=== PATIENT | male | born 1935 | race Caucasian/White ===

== ENCOUNTER → 2020-12-17 11:01 | Outpatient (BNVA) | payer MEDICARE, MEDICAID, SELFPAY | PROVIDERS: Family Provider Internal Medicine; Visit Provider Family Medicine | DX: I10 Essential (primary) hypertension (principal); E11.9 Type 2 diabetes mellitus without complications; Z79.4 Long term (current) use of insulin | CPT/HCPCS: 80053; 80061; 83036; 83721; 84443; 85025 ==

== ENCOUNTER 2021-02-18 20:39 | Inpatient (IN) | payer MEDICARE, MEDICAID, SELFPAY ==
[2021-02-18 20:42] VITALS: BP 137/71; PULSE 87; RESP 18; TEMP 36.6; O2SAT 98; BMI 28.2
[2021-02-18 20:57] VITALS: PULSE 78
--- NOTE | 2021-02-18 20:57 | XRR_ITS ---
PROCEDURE INFORMATION: Exam: XR Chest Exam date and time: 02/18/2021 9:20 PM Age: 85 years old Clinical indication: Other: Weakness/stroke like symptoms; Prior surgery; Surgery date: 6+ months; Surgery type: Pacemaker, heart valve; Patient HX: C/O weakness TECHNIQUE: Imaging protocol: XR of the chest. Views: 1 view. Total images: 1 COMPARISON: No relevant prior studies available. FINDINGS: Tubes, catheters and devices: Pacemaker. Lungs: No visible active interstitial or alveolar airspace disease. Pleural spaces: Unremarkable. No pleural effusion. No pneumothorax. Heart/Mediastinum: Cardiac structures and configuration with arteriosclerosis. Status post sternotomy chest and CABG. Mitral valve prosthesis. Bones/joints: Unremarkable for age. Other findings: Epidural TENS unit XR/XR chest 1V portable [id number] IMPRESSION: Nonacute.
--- NOTE | 2021-02-18 20:57 | CTR_ITS ---
PROCEDURE INFORMATION: Exam: CT Head Without Contrast Exam date and time: 02/18/2021 9:06 PM Age: 85 years old Clinical indication: Weakness, extremity; Patient HX: Left arm weakness. TECHNIQUE: Imaging protocol: Computed tomography of the head without contrast. Total images: 207 Radiation optimization: All CT scans at this facility use at least one of these dose optimization techniques: automated exposure control; mA and/or kV adjustment per patient size (includes targeted exams where dose is matched to clinical indication); or iterative reconstruction. COMPARISON: No relevant prior studies available. RADIATION DOSE METRICS: Total DLP (mGy-cm): 882.96 FINDINGS: Brain: Subtle hypoattenuation surrounding an antecedent appearing lacunar infarction right frontal parietal subcortical watershed junction that could reflect a recent ischemic event/infarction extension. No mass effect. No associated hemorrhagic component. No unilateral hyperdense MCA or insular ribbon sign. No generalized mass effect. No midline shift. Mild small vessel ischemic disease with senile periventricular leukomalacia. Cerebral and cerebral atrophy with ventricular dilatation not inconsistent with the patient's chronological age. Cerebral ventricles: No ventriculomegaly. Bones/joints: Unremarkable. No acute fracture. Paranasal sinuses: Visualized sinuses are unremarkable. No fluid levels. Mastoid air cells: Visualized mastoid air cells are well aerated. Soft tissues: Unremarkable. CT/CT head wo con* [id number] IMPRESSION: 1. Findings of a suspected recent right frontal parietal watershed junction ischemic event/infarction. 2. Would suggest follow-up MRI of the brain for confirmation. 3. No visible intracranial hemorrhagic event. Radiation Dose CTDIVOL = (mGy): DLP = 882.96 (mGy-cm)
[2021-02-18 22:01] LABS: Basophils # 0.1 10^3/uL (0.0-0.1); Basophils % 0.5 %; Eosinophils # 0.1 10^3/uL (0.0-0.8); Hematocrit 43.6 % (42.0-52.0); Hemoglobin 15.2 g/dL (11.7-16.6); Lymphocytes # 1.2 10^3/uL (0.8-4.8); Lymphocytes % 10.3 %; Mean Corpuscular HGB Conc 34.9 g/dL (30.0-36.0); Mean Corpuscular Hemoglobin 33.1 pg (28.0-34.0); Mean Platelet Volume 10.9 fL (7.4-10.4); Monocytes # 0.7 10^3/uL (0.2-0.9); Monocytes % 6.3 %; Neutrophils # 9.13 10^3/uL (1.8-7.7); Neutrophils % 81.5 %; Nucleated Red Blood Cells % 0 %; Platelet Count 238 10^3/cmm (130-400); Red Blood Count 4.59 10^6/uL (4.1-5.3); Red Cell Distribution Width 13.1 % (12.1-15.1); White Blood Count 11.2 10^3/uL (4.0-10.0)
--- NOTE | 2021-02-18 22:38 | ED_ITS ---
HPI - Neuro Symptoms/Deficit General: Chief Complaint: Neuro Symptoms/Deficit Stated Complaint: Stroke like symptoms Time Seen by Provider: 02/18/21 20:44 Source: patient, family () and EMS Mode of arrival: EMS Limitations: no limitations History of Present Illness: HPI Narrative: This is an 85-year-old gentleman with a history of diabetes mellitus, hypertension, who presented to the emergency department with concerns for a stroke. The patient is a poor historian and it is difficult to get an accurate timeline of events. His family states that they noticed he was leaning to the left when he was walking and hitting the wall because he was leaning to the left. The patient states that he noticed that he was leaning to the left last week also and so that this is not new. The patient's family also thought that he may have had a left facial droop and left upper extremity weakness. Those symptoms have resolved prior to arrival in the emergency department. The patient denies any dizziness, headache, focal weakness. I was unable to determine a last known well on the patient. The patient states that earlier today his blood glucose level was greater than 500 and he took a lot of insulin for these. His blood sugar subsequently dropped to about 97 which he said is extremely low for him. He states that his normal blood glucose levels around 250. He fell because his blood glucose had dropped to the low this may have been contributing to his symptoms. Location: left face and left arm History of same: No Severity: mild Quality: weak Relieving factors: time Exacerbating factors: none Context: gradual onset On Anticoagulants: No Associated symptoms: Deny chest pain, cough, diaphoresis, fevers/chills, headache(s), anorexia, malaise, nausea, seizures, short of breath, syncope, tingling, vertigo, vomiting or weakness Treatments Prior to Arrival: none Review of Systems General: Reports: 10 or more systems reviewed and unremarkable except in HPI and below Const: Denies: malaise or diaphoresis Card: Denies: chest pain or syncope GI: Denies: nausea or vomiting Neuro: Denies: headache(s) or vertigo [facility] ED PFSH: Medical History Chronic back pain DM (diabetes mellitus) Hypertension Surgical History 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 Family History Mother Stroke Father Diabetes CAD (coronary artery disease) Son Cancer Social History Smoking and tobacco status: former smoker Alcohol intake: former Marital status: Number of children: 3 Current occupational status: retired NIH stroke score NIHSS: Level Of Consciousness - 1a: 0 Level Of Consciousness Questions - 1b: Both Correct Level Of Consciousness Commands - 1c: Both Correct Best Gaze - 2: Normal Visual Simpson - 3: No Visual Loss Facial Palsy - 4: Normal Motor Arm Right - 5: No Drift Motor Arm Left - 5: No Drift Motor Leg Right - 6: No Drift Motor Leg Left - 6: No Drift Limb Ataxia - 7: Absent Sensory - 8: Normal Best Language - 9: No Aphasia Dysarthia - 10: Normal Extinction And Inattention - 11: 0 Score: Total Score: 0 Physical Exam Const: COMMON NORMALS: no acute distress, average body habitus, patient oriented x3, no limitations, healthy appearing, alert and well nourished HENMT: COMMON NORMALS: normocephalic, atraumatic and moist oral mucous membranes HEAD & SCALP: normocephalic and atraumatic Neck/C-Spine: COMMON NORMALS: no meningeal signs and no JVD Resp: COMMON NORMALS: normal respiratory effort, No retractions, No use of accessory muscles, clear to auscultation bilaterally and percussion normal AUSCULTATION: clear to auscultation bilaterally PERCUSSION: percussion normal Cardio: COMMON NORMALS: no JVD, regular rate, regular rhythm, S1 normal heart sound present, S2 normal heart sound present, No gallops present (Cardio), No clicks present (Cardio), No murmurs present (Cardio), No rub (Cardio) and Peripheral pulses 2+ throughout RATE: regular rate RHYTHM: regular rhythm HEART SOUNDS: S1 normal heart sound present and S2 normal heart sound present PERIPHERAL PULSES: Peripheral pulses 2+ throughout GI: COMMON NORMALS: Normal to inspection, nondistended, normoactive bowel sounds present, Soft to palpation, non-tender, No hepatosplenomegaly present, no masses and no bruits PALPATION: Yes Soft to palpation and Yes No hepatosplenomegaly present Extremity: COMMON NORMALS: normal to inspection, full ROM, capillary refill normal, no calf tenderness and no pedal edema Neuro: COMMON NORMALS: patient oriented x3 SENSORIUM/ORIENTATION: Yes alert MENINGEAL SIGNS: Yes no meningeal signs Skin: COMMON NORMALS: no rashes or lesions noted, no wounds, turgor normal, no jaundice, no petechiae and no mottling GENERAL SKIN EXAM: no rashes or lesions noted and turgor normal Course Consultations: Consultation #1: Discussed the patient with Dr. Gudino, hospitalist and he kindly accepted the patient to his service. Time: 22:11 Vital Signs: Vital signs: Vital Signs Temperature 98 F 02/18/21 23:07 Pulse Rate 75 02/18/21 23:07 Respiratory Rate 16 02/18/21 23:07 Blood Pressure 121/64 02/18/21 23:07 Pulse Oximetry 98 02/18/21 20:42 MDM - Neuro Symptoms/Deficit MDM Narrative: Medical decision making narrative: 85-year-old male who was brought into the emergency department with concerns for stroke symptoms. NIHSS was 0, however head CT scan shows a subacute CVA. He is admitted to the hospitalist service for further evaluation, stroke work-up and management. Medical Records: Attestation: I reviewed the patient's medical records. Lab Data: Attestation: I reviewed the patient's lab results. Labs: Lab Results 02/18/21 02/18/21 02/18/21 Range/Units 21:55 21:55 21:55 WBC 11.2 H (4.0-10.0) 10^3/ uL RBC 4.59 (4.1-5.3) 10^6/u L Hgb 15.2 (11.7-16.6) g/dL Hct 43.6 (42.0-52.0) % MCV 95.0 H (80-94) fL MCH 33.1 (28.0-34.0) pg MCHC 34.9 (30.0-36.0) g/dL RDW 13.1 (12.1-15.1) % Plt Count 238 (130-400) 10^3/c mm MPV 10.9 H (7.4-10.4) fL Neut % (Auto) 81.5 % Lymph % (Auto) 10.3 % Troup % (Auto) 6.3 % Eos % (Auto) 1.0 % Baso % (Auto) 0.5 % Neut # (Auto) 9.13 H (1.8-7.7) 10^3/u L Lymph # (Auto) 1.2 (0.8-4.8) 10^3/u L Troup # (Auto) 0.7 (0.2-0.9) 10^3/u L Eos # (Auto) 0.1 (0.0-0.8) 10^3/u L Baso # (Auto) 0.1 (0.0-0.1) 10^3/u L Nucleated RBC % (a uto) 0 % Nucleated RBCs # 0.0 /100WBC PT Cancelled INR Cancelled APTT Cancelled Sodium Cancelled Potassium Cancelled Chloride Cancelled Carbon Dioxide Cancelled Anion Gap Cancelled BUN Cancelled Creatinine Cancelled GFR Calculation Cancelled Glucose Cancelled Calculated Osmolal ity Cancelled Calcium Cancelled Total Bilirubin Cancelled AST Cancelled ALT Cancelled Alkaline Phosphata se Cancelled Total Protein Cancelled Albumin Cancelled Globulin Cancelled Imaging Data^: CXR: Attestation: I personally reviewed and interpreted this imaging study as follows: Radiologist's impression: [address] [id number] ReportSigned Patient: Alexia Carbajal #: [id number]: 5Acct#:[id number]/Sex: 85 / MADM Date: 02/18/21Loc: ERRoom/Bed:Attending Dr: Ordering Provider/Ordering MD: Baljinder Escobar MD, [facility] [place] of Service: 02/18/21 Procedure(s): XR chest 1V portable [id number] Accession Number(s): [id number] Report Number: [id number] PROCEDURE INFORMATION: Exam: XR Chest Exam date and time: 02/18/2021 9:20 PM Age: 85 years old Clinical indication: Other: Weakness/stroke like symptoms; Prior surgery; Surgery date: 6+ months; Surgery type: Pacemaker, heart valve; Patient HX: C/O weakness TECHNIQUE: Imaging protocol: XR of the chest. Views: 1 view. Total images: 1 COMPARISON: No relevant prior studies available. FINDINGS: Tubes, catheters and devices: Pacemaker. Lungs: No visible active interstitial or alveolar airspace disease. Pleural spaces: Unremarkable. No pleural effusion. No pneumothorax. Heart/Mediastinum: Cardiac structures and configuration with arteriosclerosis. Status post sternotomy chest and CABG. Mitral valve prosthesis. Bones/joints: Unremarkable for age. Other findings: Epidural TENS unit XR/XR chest 1V portable [id number] IMPRESSION: Nonacute. Dictated By:Leena More By:Leena More Date/Time:02/18/212158DD/ 56 CT Head: Attestation: I personally reviewed and interpreted this imaging study as follows: Radiologist's impression: [address] [id number] Scan ReportSigned with Addenda Patient: Alexia Carbajal #: [id number]: 5Acct#:[id number]/Sex: 85 / MADM Date: 02/18/21Loc: ERRoom/Bed:Attending Dr: Ordering Provider/Ordering MD: Baljinder Escobar MD, [facility] [place] Date of Service: 02/18/21 Procedure(s): CT head wo con* [id number] Accession Number(s): [id number] Report Number: [id number]/CT head wo con* [id number] THIS REPORT CONTAINS FINDINGS THAT MAY BE CRITICAL TO PATIENT CARE. The findings were verbally communicated via telephone conference with Dr. Escobar at 9:56 PM CDT on 02/18/2021. The findings were acknowledged and understood. Radiation Dose CTDIVOL = (mGy): DLP = 882.96 (mGy-cm) Addendum Dictated By: Neal Moreendum Signed By: Leena More Date/Time:02/18/211Addendum Cosigned By: PROCEDURE INFORMATION: Exam: CT Head Without Contrast Exam date and time: 02/18/2021 9:06 PM Age: 85 years old Clinical indication: Weakness, extremity; Patient HX: Left arm weakness. TECHNIQUE: Imaging protocol: Computed tomography of the head without contrast. Total images: 207 Radiation optimization: All CT scans at this facility use at least one of these dose optimization techniques: automated exposure control; mA and/or kV adjustment per patient size (includes targeted exams where dose is matched to clinical indication); or iterative reconstruction. COMPARISON: No relevant prior studies available. RADIATION DOSE METRICS: Total DLP (mGy-cm): 882.96 FINDINGS: Brain: Subtle hypoattenuation surrounding an antecedent appearing lacunar infarction right frontal parietal subcortical watershed junction that could reflect a recent ischemic event/infarction extension. No mass effect. No associated hemorrhagic component. No unilateral hyperdense MCA or insular ribbon sign. No generalized mass effect. No midline shift. Mild small vessel ischemic disease with senile periventricular leukomalacia. Cerebral and cerebral atrophy with ventricular dilatation not inconsistent with the patient's chronological age. Cerebral ventricles: No ventriculomegaly. Bones/joints: Unremarkable. No acute fracture. Paranasal sinuses: Visualized sinuses are unremarkable. No fluid levels. Mastoid air cells: Visualized mastoid air cells are well aerated. Soft tissues: Unremarkable. CT/CT head wo con* [id number] IMPRESSION: 1. Findings of a suspected recent right frontal parietal watershed junction ischemic event/infarction. 2. Would suggest follow-up MRI of the brain for confirmation. 3. No visible intracranial hemorrhagic event. Radiation Dose CTDIVOL = (mGy): DLP = 882.96 (mGy-cm) Dictated By:Leena More By:Leena More Date/Time:02/18/212157DD/ 55 Discharge Plan Discharge Patient Disposition: Admitted As Inpatient Admit Provider: Adina Gudino Clinical Impression: Cerebrovascular accident Qualifiers: CVA mechanism: unspecified Qualified Code(s): I63.9 - Cerebral infarction, unspecified Condition: Stable Coding Level of Care Code ED Correspondence School Teacher for [facility] Fwd Exam Comprehensive
--- NOTE | 2021-02-18 22:38 | PC.NURSE ---
report to Maryellen BARRAGAN , at [facility]
[2021-02-18 23:07] VITALS: BP 121/64; PULSE 75; RESP 16; TEMP 36.6
--- NOTE | 2021-02-18 23:21 | PM.HP ---
Providers/Chief Complaint Admitting Physician: Adina Gudino MD Chief Complaint: Stroke like symptoms History of Present Illness Nick Carbajal is a 85 year old male with pmh of IDDM, HTN, HLD, previous tobacco use presented to ER with complaints of left upper extremity weakness since about 530 PM today. reports that he had possible word finding difficulties, and facial droop. his FSBS was elevated also state, later fluctuated at home He is not on ASA or blood thinners. states he has history of heart valve replacement not able to recall which one. The patient had an abnormal CT head in the ER and is being admitted for suspected CVA CT head CT/CT head wo con* [id number] IMPRESSION: 1. Findings of a suspected recent right frontal parietal watershed junction ischemic event/infarction. 2. Would suggest follow-up MRI of the brain for confirmation. 3. No visible intracranial hemorrhagic event. Review of Systems General: Reports: 10 or more systems reviewed and unremarkable except in HPI and below Const: Denies: fever(s) or chills Eyes: Denies: change in vision ENMT: Denies: throat pain Card: Denies: chest pain or palpitations Resp: Denies: dyspnea or productive cough GI: Denies: abdominal pain or nausea : Denies: flank pain or difficulty urinating Musc: Denies: extremity swelling or joint pain Skin/Breast: Denies: rash Neuro: Reports: weakness in extremities; Denies: headache(s) or Slurred speech present Psych: Denies: anxiety or depression Medications/Allergies Home Medications Medication Instructions Recorded Confirmed Last Taken Type insulin glargine 100 unit/mL (3 40 unit SUBCUT DAILY #15 ml 12/17/20 12/27/20 Unknown Rx mL) subcutaneous pen losartan 50 mg tablet 50 mg PO DAILY #30 tab 12/17/20 12/27/20 Unknown Rx finasteride 5 mg tablet 5 mg PO DAILY #30 tab 12/21/20 12/27/20 Unknown Rx insulin lispro 100 unit/mL 10 unit SUBCUT TID #3 ml 12/21/20 12/27/20 Unknown Rx subcutaneous pen metformin 1,000 mg tablet 1,000 mg PO BID #60 tab 12/21/20 12/27/20 Unknown Rx tamsulosin 0.4 mg capsule 0.4 mg PO DAILY #30 cap 12/21/20 12/27/20 Unknown Rx rosuvastatin 5 mg tablet 5 mg PO DAILY 90 Days #90 tab 12/24/20 12/27/20 Unknown Rx allopurinol 300 mg tablet 300 mg PO DAILY 12/27/20 12/27/20 Unknown History cholecalciferol (vitamin D3) 50 50 mcg PO DAILY 12/27/20 12/27/20 Unknown History mcg (2,000 unit) capsule glucosamine 500 cap PO 12/27/20 12/27/20 Unknown History lp-tykhardsq-guugtwmw comp 400 mg-D3 667 unit-C-Mn cap krill oil PO 12/27/20 12/27/20 Unknown History multivitamin 1 tab PO DAILY 12/27/20 12/27/20 Unknown History pantoprazole 40 mg tablet,delayed 40 mg PO DAILY 12/27/20 12/27/20 Unknown History release vit C 250 mg-vit E 90 mg-zinc 40 1 tab PO BID 12/27/20 12/27/20 Unknown History mg-copper 1 py-znervt-ypnhpo capsule blood sugar diagnostic #100 ea 02/18/21 Unknown Rx Allergies Allergy/AdvReac Type Severity Reaction Status Date / Time No Known Allergies Allergy Verified 12/17/20 09:55 PFSH Acute PFSH: Medical History (Reviewed 02/18/21 @ 22:50 by Baljinder Escobar MD, [facility] [place] Chronic back pain DM (diabetes mellitus) Hypertension Surgical History (Reviewed 02/18/21 @ 22:50 by Baljinder Escobar MD, [facility] [place] 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 Family History (Reviewed 02/18/21 @ 22:50 by Baljinder Escobar MD, [facility] [facility] [place] Mother Stroke Father Diabetes CAD (coronary artery disease) Son Cancer Social History (Reviewed 02/18/21 @ 22:50 by Baljinder Escobar MD, [facility] [place] Smoking and tobacco status: former smoker Alcohol intake: former Marital status: Number of children: 3 Current occupational status: retired Vitals/I&O/Wt Last Vital Signs Temp 98 F 02/18/21 23:07 Pulse 75 02/18/21 23:07 Resp 16 02/18/21 23:07 BP 121/64 02/18/21 23:07 Pulse Ox 98 02/18/21 20:42 Weight last 48 hrs Weight 220 lb Physical Exam Const: COMMON NORMALS: no acute distress and no limitations Eye: COMMON NORMALS: Equal, round and reactive pupils present Resp: COMMON NORMALS: normal respiratory effort and No retractions Cardio: COMMON NORMALS: regular rate and regular rhythm HEART SOUNDS: Murmur heart sound present GI: COMMON NORMALS: Normal to inspection, nondistended, normoactive bowel sounds present and Soft to palpation Extremity: COMMON NORMALS: normal to inspection and full ROM Neuro: ZEN COMA SCALE: document GCS findings COMMON NORMALS: patient oriented x3, CN's II-XII intact bilaterally, moves all extremities, no focal motor deficits and no sensory deficits noted Data : 02/18/21 21:55 02/18/21 21:55 A&P Assessment and plan (1) Cerebrovascular accident: admit to med surg neuro check check FLP, AIC PT/OT ECHO, carotid US, MRI/MRA brain asa,statin Status: Acute Qualifiers: CVA mechanism: unspecified Qualified Code(s): I63.9 - Cerebral infarction, unspecified (2) Hypertension: add PRN hydralyzine Status: Acute Qualifiers: Hypertension type: essential hypertension Qualified Code(s): I10 - Essential (primary) hypertension (3) DM (diabetes mellitus): check aic fsbs, ssi resume home insulin regimen Status: Acute Qualifiers: Diabetes mellitus complication status: without complication Diabetes mellitus retirement insulin use: with manager intermediate use Diabetes mellitus type: type 2 Qualified Code(s): E11.9 - Type 2 diabetes mellitus without complications; Z79.4 - FCI (current) use of insulin Attestations Medical Necessity Statement*: Nick Solomon's hospital stay will require greater than 2 midnights for cva Coding Level of Care Code Acute Md Urologist for [facility] Fwd Exam Detailed Diagnoses Cerebrovascular accident I63.9 CVA mechanism: unspecified Hypertension I10 Hypertension type: essential hypertension DM (diabetes mellitus) E11.9; Z79.4 Diabetes mellitus complication status: without complication Diabetes mellitus retirement insulin use: with retirement use Diabetes mellitus type: type 2
[2021-02-18 23:35] VITALS: BP 133/66; PULSE 85; RESP 18; TEMP 36.6; O2SAT 96
[2021-02-18 23:43] LABS: INR 0.99 (0.8-1.2); Partial Thromboplastin Time 26.6 SECONDS (23.9-36.7)
[2021-02-18 23:48] VITALS: BP 133/66; PULSE 85; RESP 18; TEMP 36.6; O2SAT 96
[2021-02-18 23:50] LABS: Alanine Aminotransferase 12 U/L (0-41); Alkaline Phosphatase 78 IU/L (40-130); Anion Gap 18.3 (5-19); Aspartate Amino Transferase 14 U/L (0-40); Blood Urea Nitrogen 23 mg/dL (8-23); Calcium 8.7 mg/dL (8.5-10.5); Carbon Dioxide 23 mmol/L (22-29); Chloride 97 mmol/L (98-107); Globulin 2.3 g/dL (1.3-4.6); Glucose 316 mg/dL (65-115); Osmolality Calculated 294 mOsm/kg (285-295); Potassium 4.3 mmol/L (3.5-5.1); Sodium 134 mmol/L (136-145); Total Bilirubin 0.7 mg/dL (0.15-1.2); Total Protein 6.3 g/dL (6.6-8.7)
[2021-02-19] VITALS (9 sets, daily range): BP systolic 116–160; BP diastolic 60–78; PULSE 71–95; RESP 17–19; TEMP 36.5–37; O2SAT 94–97
[2021-02-19 00:06] LABS: Glucose Point of Care 322 mg/dL (70-110)
[2021-02-19 00:45] LABS: Add Urine Microscopic? YES; Bilirubin Urine Neg (Negative); Blood Urine Neg (Negative); Glucose Urine UA 4+ (Normal); Ketones Urine Negative (Negative); Leukocyte Esterase Urine Trace (Negative); Nitrate Urine Positive (Negative); Protein Urine Neg (Negative); Urine Color Yellow (Yellow); Urobilinogen Urine Norm (Negative); pH Urine 6 (5-7)
[2021-02-19] MEDS: atorvastatin 40 mg Tablet 20 MG PO ×2 (00:46→21:00)
[2021-02-19 00:51] LABS: Add Urine Culture? Yes; Amorphous Sediment Urine 2+ /hpf; Bacteria Urine 2+ /hpf; RBC Urine 0-4 /hpf (0-2); Squamous Epithelial Cell Urine 0-4 /hpf (0-5); WBC Urine 25-40 /hpf (0-5)
[2021-02-19 00:54] LABS: Amphetamines Screen Urine Negative (Negative); Barbiturates Screen Urine Negative (Negative); Benzodiazepines Screen Urine Negative (Negative); Cocaine Screen Urine Negative (Negative); Opiate Screen Urine Negative (Negative); PCP Screen Urine Negative (Negative); THC Screen Urine Negative (Negative)
[2021-02-19 04:00] LABS: Chol HDL Ratio 6.23 mg/dL (1.0-5.00); Cholesterol 193 mg/dL (0-200); HDL Cholesterol 31 mg/dL (60-100); Thyroid Stimulating Hormone 1.24 uIU/mL (0.27-4.20); Triglycerides 548 mg/dL (0-150)
[2021-02-19 04:04] LABS: Estmated Average Glucose 194; Hemoglobin A1C 8.4 % (4.0-6.0)
[2021-02-19 04:35] LABS: LDL Cholesterol Direct 97 mg/dL (0-100)
--- NOTE | 2021-02-19 06:00 | USCV_ITS ---
Nick Carbajal Age: 85 Gender: M : 1935 Exam Date: 02/19/2021 08:01 Ordering Phys: Adina Gudino MD Technologist: Theresa Monk [place] [facility] [place]: CVA BP: 125 / 65 HR: 80 Rhythm: Sinus Technical Quality: Fair MEASUREMENTS (Male / Female) Normal Values 2D ECHO LV Diastolic Diameter PLAX 3.6 cm 4.2 - 5.9 / 3.9 - 5.3 cm LV Systolic Diameter PLAX 2.7 cm LV Chamber Size 4.2 cm IVS Diastolic Thickness 1.5 cm 0.6 - 1.0 / 0.6 - 0.9 cm IVS Systolic Thickness 1.8 cm LVPW Diastolic Thickness 1.3 cm 0.6 - 1.0 / 0.6 - 0.9 cm LVPW Systolic Thickness 1.4 cm RV Chamber Size 3.3 cm LVOT Diameter 1.7 cm LV Ejection Fraction 2D Teich 51.7 % LV Ejection Fraction MOD 2C 66.7 % LV Ejection Fraction 2C AL 70.5 % LA Diameter 4.1 cm LA Width 3.3 cm LA Height 5.4 cm RA Width 3.2 cm RA Height 5.2 cm Aorta at Sinotubular Diameter 2.3 cm M-MODE LV Diastolic Diameter MM 5.5 cm 4.2 - 5.9 / 3.9 - 5.3 cm LV Systolic Diameter MM 3.3 cm LV Ejection Fraction MM Teich 68.5 % IVS Diastolic Thickness MM 1.0 cm 0.6 - 1.0 / 0.6 - 0.9 cm IVS Systolic Thickness MM 1.5 cm LVPW Diastolic Thickness MM 1.9 cm 0.6 - 1.0 / 0.6 - 0.9 cm LVPW Systolic Thickness MM 1.8 cm Aortic Annulus Diameter 4.0 cm LA Ao Ratio MM 1.2 DOPPLER AV Peak Velocity 148.0 cm/s LVOT Peak Velocity 117.0 cm/s AV Area Cont Eq vti 2.4 cm squared AV Area Cont Eq pk 1.8 cm squared MV Peak Velocity 174.0 cm/s MV Area PHT 2.8 cm squared Mitral E to A Ratio 0.6 MV E' Velocity 110.0 cm/s TR Peak Velocity 263.6 cm/s TR Peak Gradient 27.8 mmHg TR Mean Velocity 232.4 cm/s TR Mean Gradient 22.3 mmHg TR Velocity Time Integral 76.5 cm TV Peak E Velocity 62.0 cm/s Right Atrial Pressure 3.0 mmHg Pulmonary Artery Systolic Pressu 30.8 mmHg PV Peak Velocity 71.0 cm/s RV Acceleration Time 0.1 s RV Ejection Time 0.2 s RV AcT/ET 0.3 FINDINGS Left Ventricle Normal left ventricular size and systolic function, EF 70 %. No regional wall motion abnormalities. Mild left ventricular hypertrophy. Grade I/IV diastolic dysfunction (abnormal relaxation filling pattern), normal to mildly elevated filling pressures. Right Ventricle The right ventricle is normal in size and function. Right Atrium The right atrium is normal in size. Left Atrium The left atrium is normal in size. Mitral Valve Moderate mitral annular calcification. Aortic Valve Thickened aortic valve. Tricuspid Valve Trace tricuspid valve regurgitation. Pulmonic Valve Pulmonic valve not well visualized. Pericardium Normal pericardium without effusion. Aorta Normal ascending aorta dimension. CONCLUSIONS Normal left ventricular size and systolic function, EF 70 %. No regional wall motion abnormalities. Mild left ventricular hypertrophy. Grade I/IV diastolic dysfunction (abnormal relaxation filling pattern), normal to mildly elevated filling pressures. Moderate mitral annular calcification. Thickened aortic valve. Trace tricuspid valve regurgitation. There are no intracardiac masses. There are no prior echocardiogram studies to compare. Dr Tammy Callahan MD FAC (Electronically Signed) Final Date: 19 Feb 2021 10:02 S
--- NOTE | 2021-02-19 06:00 | USR_ITS ---
Arterial ultrasound of the extracerebral carotid and vertebral arteries Clinical indication: Weakness, extremity; Left; Additional info: CVA Technique: Real-time ultrasound with davis scale, duplex Doppler, and color flow imaging was performed to evaluate the extracerebral carotid and vertebral arteries. No prior vascular imaging studies are available for correlation at the time of dictation. Findings: Asymmetric plaque formation is identified in the visualized carotid arteries, left greater than right. There is normal antegrade flow within the vertebral arteries bilaterally. The peak systolic velocity measurements within the right and left internal carotid arteries are 74 and 143 cm per second respectively. The right systolic velocity ratio is 1.12, while the left systolic velocity ratio is 1.80. When correlating with NASCET index criteria, the mildly elevated velocity measurement in the left internal carotid artery would be indicative of low-grade stenosis on the order of 50-69%. US/CV carotid duplex BI* [id number] Impression: 1. Asymmetric plaque formation within the carotid arteries, with low-grade left ICA stenosis, on the order of 50-69%. 2. Normal antegradew flow within the vertebral arteries.
[2021-02-19 06:30] LABS: Glucose Point of Care 312 mg/dL (70-110)
[2021-02-19] MEDS: finasteride 5 mg Tablet PO (08:40)
[2021-02-19] MEDS: tamsulosin 0.4 mg Capsule PO ×2 (08:40→17:29)
[2021-02-19] MEDS: aspirin 325 mg Tablet PO (08:40)
--- NOTE | 2021-02-19 10:00 | PM.PN ---
Subjective Subjective: Interval history: Overall he is doing all right, denies any new developments. Denies headache, dizziness, vision changes. Denies new numbness or weakness. Denies shortness of breath or chest pain. Has a bioprosthetic heart valve. Pacemaker. Occasionally sees a tug boat engineer. Vitals/I&O/Wt Last Vital Signs Temp 97.7 F 02/19/21 08:00 Pulse 71 02/19/21 08:00 Resp 17 02/19/21 08:00 BP 153/78 02/19/21 08:00 Pulse Ox 97 02/19/21 08:00 02/18/21 02/19/21 02/19/21 22:59 06:59 14:59 Intake Total 360 / 360 Output Total 725 / 725 475 / 475 Balance -725 / -725 -115 / -115 Weight last 48 hrs Weight 99.79 kg Physical Exam Const: COMMON NORMALS: no acute distress, patient oriented x3 and alert HENMT: COMMON NORMALS: oropharynx normal Neck/C-Spine: COMMON NORMALS: no meningeal signs and no JVD Resp: COMMON NORMALS: normal respiratory effort and clear to auscultation bilaterally AUSCULTATION: clear to auscultation bilaterally Cardio: COMMON NORMALS: no JVD, regular rhythm, S1 normal heart sound present, S2 normal heart sound present and No murmurs present (Cardio) RHYTHM: regular rhythm HEART SOUNDS: S1 normal heart sound present and S2 normal heart sound present GI: COMMON NORMALS: Normal to inspection, nondistended, normoactive bowel sounds present, Soft to palpation and non-tender PALPATION: Yes Soft to palpation Extremity: COMMON NORMALS: no joint enlargement and no pedal edema Neuro: COMMON NORMALS: patient oriented x3 and moves all extremities SENSORIUM/ORIENTATION: Yes alert MENINGEAL SIGNS: Yes no meningeal signs COORDINATION/BALANCE: [id number]-[id number] test normal and tapk-on-hwno test normal SPEECH: speech normal SENSORY EXAM: Yes Normal double simultaneous stimulation for sensation MOTOR EXAM: 5/5 motor strength present throughout, Pronator motor function not present and Normal motor muscle tone present throughout COORDINATION: fmmyds-ef-aajo test normal and ramd-xq-ouum test normal OTHER: No trouble tracking. Visual patricio full to confrontation. Skin: COMMON NORMALS: no rashes or lesions noted GENERAL SKIN EXAM: no rashes or lesions noted Data : 02/18/21 21:55 02/18/21 23:26 A&P Assessment and plan (1) Cerebrovascular accident: Symptoms appear to resolve. Possible CVA on CT head. Checking with MRI study is not able to be obtained over the weekend. Scheduled for Sunday morning. Carotid Doppler with low-grade left ICA stenosis, 50-69%. He has bioprosthetic heart valve. Pacemaker. He is not aware of history of atrial fibrillation. Continue aspirin, statin. Monitor on telemetry. Follow-up TTE. PT/OT/ST assessment. Status: Acute Qualifiers: CVA mechanism: unspecified Qualified Code(s): I63.9 - Cerebral infarction, unspecified (2) Hypertension: Monitor BP. Resume losartan. Flomax. PRN hydralyzine Status: Acute Qualifiers: Hypertension type: essential hypertension Qualified Code(s): I10 - Essential (primary) hypertension (3) DM (diabetes mellitus): A1c 8.4, could benefit from optimization of diabetes control. resume home insulin regimen Status: Acute Qualifiers: Diabetes mellitus complication status: without complication Diabetes mellitus middle or intermediate school principal insulin use: with retirement use Diabetes mellitus type: type 2 Qualified Code(s): E11.9 - Type 2 diabetes mellitus without complications; Z79.4 - terminal gauger (current) use of insulin (4) UTI (urinary tract infection): Follow urine culture. Discussed with him. Start Rocephin. Status: Acute Attestations Medical Necessity Statement*: Continue admission for assessment management following CVA. Coding Level of Care Code Acute Account Manager Relief for [facility] Fwd Exam Comprehensive Diagnoses Cerebrovascular accident I63.9 CVA mechanism: unspecified Hypertension I10 Hypertension type: essential hypertension DM (diabetes mellitus) E11.9; Z79.4 Diabetes mellitus complication status: without complication Diabetes mellitus retirement insulin use: with middle or intermediate school principal use Diabetes mellitus type: type 2 UTI (urinary tract infection) N39.0
[2021-02-19] MEDS: cefTRIAXone 1,000 MG in sodium chloride 0.9% (plus) 50 ML 100 MG IV (11:01)
[2021-02-19 11:04] LABS: Glucose Point of Care 351 mg/dL (70-110)
--- NOTE | 2021-02-19 13:41 | PC.NUTR ---
MD nutrition consult, stroke diagnosis. Provided nutrition education for Stroke Nutrition Therapy, CHO Counting for DM, and High Triglycerides Nutrition Therapy. Recommend to consider consistent carb addition to current diet order given glucose ranging in 300s, however pt age and preferences also noted. MD notified of recommendation.
[2021-02-19 17:06] LABS: Glucose Point of Care 341 mg/dL (70-110)
[2021-02-19 20:04] LABS: Glucose Point of Care 395 mg/dL (70-110)
[2021-02-19] MEDS: trazodone 50 mg Tablet PO (21:00)
[2021-02-20] VITALS (10 sets, daily range): BP systolic 107–158; BP diastolic 58–81; PULSE 62–92; RESP 16–20; TEMP 36.5–37.8; O2SAT 93–97
[2021-02-20 05:33] LABS: Basophils # 0.1 10^3/uL (0.0-0.1); Basophils % 0.7 %; Eosinophils # 0.2 10^3/uL (0.0-0.8); Eosinophils % 2.7 %; Hematocrit 44.2 % (42.0-52.0); Hemoglobin 15.4 g/dL (11.7-16.6); Lymphocytes # 0.9 10^3/uL (0.8-4.8); Mean Corpuscular HGB Conc 34.8 g/dL (30.0-36.0); Mean Corpuscular Hemoglobin 33.5 pg (28.0-34.0); Mean Corpuscular Volume 96.1 fL (80-94); Mean Platelet Volume 10.5 fL (7.4-10.4); Monocytes # 0.7 10^3/uL (0.2-0.9); Monocytes % 7.9 %; Neutrophils # 6.54 10^3/uL (1.8-7.7); Neutrophils % 77.2 %; Nucleated Red Blood Cells % 0 %; Platelet Count 175 10^3/cmm (130-400); Red Cell Distribution Width 12.7 % (12.1-15.1); White Blood Count 8.5 10^3/uL (4.0-10.0)
--- NOTE | 2021-02-20 05:52 | PC.NURSE ---
Shift Summary Patient alert and oriented able to get up to side of bed and use urinal independently. Patients NIH is 0 and his q4 hour neuros are all negative. Patient is waiting for game plan and hoping he can go home soon. Home is pending MRI, on sunday. Called Dr Gudino last night at 2100 for something to help him sleep received an order for trazadone, he said it helped him get some sleep but he was unable to sleep the night away due to the interruptions.
[2021-02-20 05:53] LABS: Anion Gap 16.4 (5-19); Blood Urea Nitrogen 19 mg/dL (8-23); Calcium 8.5 mg/dL (8.5-10.5); Carbon Dioxide 23 mmol/L (22-29); Chloride 99 mmol/L (98-107); Glucose 276 mg/dL (65-115); Osmolality Calculated 290 mOsm/kg (285-295); Potassium 4.4 mmol/L (3.5-5.1); Sodium 134 mmol/L (136-145)
[2021-02-20 06:29] LABS: Glucose Point of Care 317 mg/dL (70-110)
[2021-02-20 08:44] LABS: Glucose Point of Care 303 mg/dL (70-110)
[2021-02-20] MEDS: aspirin 325 mg Tablet PO (08:46)
[2021-02-20] MEDS: tamsulosin 0.4 mg Capsule PO ×2 (08:46→18:14)
[2021-02-20] MEDS: finasteride 5 mg Tablet PO (08:46)
[2021-02-20] MEDS: cefTRIAXone 1,000 MG in sodium chloride 0.9% (plus) 50 ML 100 MG IV (09:51)
[2021-02-20 11:34] LABS: Glucose Point of Care 363 mg/dL (70-110)
--- NOTE | 2021-02-20 14:20 | P.PN_ITS ---
Subjective Subjective: Interval history: He reports he is doing well. Denies any complaints new symptoms. No new weakness or numbness. Vitals/I&O/Wt Last Vital Signs Temp 97.9 F 02/20/21 11:14 Pulse 89 02/20/21 11:14 Resp 18 02/20/21 11:14 BP 107/63 02/20/21 11:14 Pulse Ox 94 02/20/21 11:14 02/19/21 02/20/21 02/20/21 22:59 06:59 14:59 Intake Total 120 / 1010 450 / 1460 530 / 530 Output Total 300 / 2375 1000 / 3375 600 / 600 Balance -180 / -1365 -550 / -1915 -70 / -70 Weight last 48 hrs Weight 99.79 kg Physical Exam Const: COMMON NORMALS: no acute distress, patient oriented x3 and alert HENMT: COMMON NORMALS: oropharynx normal OTHER: Perhaps minimal small ecchymosis spot at the right side tip of his tongue which he feels he had bit Neck/C-Spine: COMMON NORMALS: no meningeal signs and no JVD Resp: COMMON NORMALS: normal respiratory effort and clear to auscultation bilaterally AUSCULTATION: clear to auscultation bilaterally Cardio: COMMON NORMALS: no JVD, regular rhythm, S1 normal heart sound present, S2 normal heart sound present and No murmurs present (Cardio) RHYTHM: regular rhythm HEART SOUNDS: S1 normal heart sound present and S2 normal heart sound present GI: COMMON NORMALS: Normal to inspection, nondistended, normoactive bowel sounds present, Soft to palpation and non-tender PALPATION: Yes Soft to palpation Extremity: COMMON NORMALS: no joint enlargement and no pedal edema Neuro: COMMON NORMALS: patient oriented x3 and moves all extremities SENSORIUM/ORIENTATION: Yes alert MENINGEAL SIGNS: Yes no meningeal signs COORDINATION/BALANCE: omyoky-ra-tfqc test normal and xzym-iv-ydwo test normal SPEECH: speech normal SENSORY EXAM: Yes Normal double simultaneous stimulati on for sensation MOTOR EXAM: 5/5 motor strength present throughout, Pronator motor function not present and Normal motor muscle tone present throughout COORDINATION: zdcchc-py-tonp test normal and gupp-vj-yowu test normal OTHER: No trouble tracking. Visual patricio full to confrontation. Skin: COMMON NORMALS: no rashes or lesions noted GENERAL SKIN EXAM: no rashes or lesions noted OTHER: Small ecchymosis at nailbed of middle finger of left hand which he says he had pinched a while ago Data : 02/20/21 05:25 02/20/21 05:25 Micro: Microbiology 02/20/21 13:05 Blood Culture - Preliminary Blood SPECIMEN COLLECTED 02/20/21 13:00 Blood Culture - Preliminary Blood SPECIMEN COLLECTED 02/18/21 23:00 Urine Culture - Preliminary Urine,Voided Coagulase negativ staphylococc A&P Assessment and plan (1) UTI (urinary tract infection): More than 100,000 CFU coagulase-negative staph in urine. Discussed with him. Unclear whether this is the primary infection. Discussed concern regarding presence of prosthetic valve and whether this could be seeded from elsewhere possibly with bacteremia. We are requesting for blood cultures. Will check ESR, CRP. TTE did not appear to show any obvious sign of vegetation. He has 2 somewhat suspect spots/tiny ecchymosis on his body including nailbed of the left middle finger, right side tip of his tongue, although he says that he pinched his finger while back, and that he may have bit the tip of his tongue. Please follow-up final urine culture results, blood culture. Consider whether additional assessment is needed. For now we will expand antibiotic course with vancomycin. Follow-up MRI brain which will be done tomorrow for any signs of embolic disease. Status: Acute (2) Cerebrovascular accident: Additional assessment of less usual UTI as above. Follow-up MRI brain. Continue aspirin, statin. Follow-up with neurology in office. Continue cardiac monitoring while in hospital. Consider setting up monitoring coordinator at discharge. Carotid Doppler with low-grade left ICA stenosis, 50-69%. He has bioprosthetic heart valve. Pacemaker. He is not aware of history of atrial fibrillation. Continue aspirin, statin. PT/OT/ST assessment. Status: Acute Qualifiers: CVA mechanism: unspecified Qualified Code(s): I63.9 - Cerebral infarction, unspecified (3) Hypertension: Now appears to be much better. Continue losartan. Flomax. PRN hydralyzine Status: Acute Qualifiers: Hypertension type: essential hypertension Qualified Code(s): I10 - Essential (primary) hypertension (4) DM (diabetes mellitus): A1c 8.4, could benefit from optimization of diabetes control. Insulin had been resumed, but appears any recorded hypoglycemia. Resume. Status: Acute Qualifiers: Diabetes mellitus type: type 2 Diabetes mellitus termite exterminator helper insulin use: with termite exterminator helper use Diabetes mellitus complication status: without complication Qualified Code(s): E11.9 - Type 2 diabetes mellitus without complications; Z79.4 - termite exterminator helper (current) use of insulin Attestations Medical Necessity Statement*: Continue admission for assessment management of staphylococcal UTI in presence of prosthetic heart valve, as well as CVA on admission. Coding Level of Care Code Acute Feed Mill Tender for [facility] Fwd Diagnoses UTI (urinary tract infection) N39.0 Cerebrovascular accident I63.9 CVA mechanism: unspecified Hypertension I10 Hypertension type: essential hypertension DM (diabetes mellitus) E11.9; Z79.4 Diabetes mellitus type: type 2 Diabetes mellitus group home insulin use: with termite exterminator helper use Diabetes mellitus complication status: without complication
[2021-02-20] MEDS: vancomycin 1,500 MG/300 ML PIGGYBACK 200 MG IV (16:44)
[2021-02-20 17:53] LABS: Glucose Point of Care 316 mg/dL (70-110)
[2021-02-20 20:43] LABS: Glucose Point of Care 348 mg/dL (70-110)
[2021-02-20] MEDS: atorvastatin 40 mg Tablet 20 MG PO (21:24)
[2021-02-20] MEDS: insulin glargine 100 units/1 mL 40 UNIT SUBCUT (21:27)
[2021-02-21 04:00] VITALS: BP 126/76; PULSE 77; RESP 16; TEMP 37.1; O2SAT 95
[2021-02-21 05:52] LABS: Basophils # 0.1 10^3/uL (0.0-0.1); Eosinophils # 0.3 10^3/uL (0.0-0.8); Eosinophils % 3.9 %; Hematocrit 43.9 % (42.0-52.0); Hemoglobin 15.3 g/dL (11.7-16.6); Lymphocytes # 1.7 10^3/uL (0.8-4.8); Lymphocytes % 21.4 %; Mean Corpuscular HGB Conc 34.9 g/dL (30.0-36.0); Mean Corpuscular Hemoglobin 33.3 pg (28.0-34.0); Mean Corpuscular Volume 95.4 fL (80-94); Mean Platelet Volume 10.8 fL (7.4-10.4); Monocytes # 0.8 10^3/uL (0.2-0.9); Monocytes % 9.7 %; Neutrophils # 4.93 10^3/uL (1.8-7.7); Neutrophils % 63.7 %; Nucleated Red Blood Cells % 0 %; Platelet Count 197 10^3/cmm (130-400); Red Cell Distribution Width 12.7 % (12.1-15.1); White Blood Count 7.7 10^3/uL (4.0-10.0)
[2021-02-21 06:00] VITALS: PULSE 76
[2021-02-21 06:06] LABS: Anion Gap 14.4 (5-19); Blood Urea Nitrogen 21 mg/dL (8-23); Calcium 8.3 mg/dL (8.5-10.5); Carbon Dioxide 25 mmol/L (22-29); Chloride 100 mmol/L (98-107); Glucose 261 mg/dL (65-115); Osmolality Calculated 292 mOsm/kg (285-295); Potassium 4.4 mmol/L (3.5-5.1); Sodium 135 mmol/L (136-145)
[2021-02-21 06:15] LABS: Glucose Point of Care 277 mg/dL (70-110)
[2021-02-21 06:39] LABS: Glucose Point of Care 282 mg/dL (70-110)
[2021-02-21 07:46] VITALS: BP 131/75; PULSE 79; RESP 17; TEMP 36.6; O2SAT 94
[2021-02-21] MEDS: finasteride 5 mg Tablet PO (08:46)
[2021-02-21] MEDS: aspirin 325 mg Tablet PO (08:46)
[2021-02-21] MEDS: tamsulosin 0.4 mg Capsule PO (08:47)
[2021-02-21] MEDS: cefTRIAXone 1,000 MG in sodium chloride 0.9% (plus) 50 ML 100 MG IV (09:17)
[2021-02-21] MEDS: vancomycin 1,500 MG/300 ML PIGGYBACK 200 MG IV (10:10)
--- NOTE | 2021-02-21 10:28 | PC.SOCIAL ---
*IMM UPDATE* Gave patient IMM update. Provided him copy of pg 2. Verbalized understanding. 02/21/21 @ 0907 Initialed, dated, timed and placed in chart.
[2021-02-21 11:48] VITALS: BP 136/77; PULSE 76; RESP 15; TEMP 36.5; O2SAT 96
[2021-02-21 12:09] LABS: Glucose Point of Care 318 mg/dL (70-110)
--- NOTE | 2021-02-21 13:09 | PM.DCS ---
Discharge Providers Date of Admission: 02/18/21 22:14 Date of Discharge: February 21, 2021 Attending Provider at Admission: Adina Gudino MD Attending Provider at Discharge: Brendon Garcias MD Diagnoses at Discharge Discharge Diagnosis (1) UTI (urinary tract infection): Status: Acute (2) Cerebrovascular accident: Status: Acute Qualifiers: CVA mechanism: unspecified Qualified Code(s): I63.9 - Cerebral infarction, unspecified (3) Hypertension: Status: Acute Qualifiers: Hypertension type: essential hypertension Qualified Code(s): I10 - Essential (primary) hypertension (4) DM (diabetes mellitus): Status: Acute Qualifiers: Diabetes mellitus type: type 2 Diabetes mellitus buttermaker helper insulin use: with correction use Diabetes mellitus complication status: without complication Qualified Code(s): E11.9 - Type 2 diabetes mellitus without complications; Z79.4 - custodial (current) use of insulin Reason for Visit Reason for Visit: Stroke like symptoms Hospital Course Hospital Course 85-year-old pleasant gentleman with past medical history of insulin-dependent diabetes mellitus, hypertension, hyperlipidemia presented to ER on February 18 with symptoms suggestive of TIA. He was admitted to the hospital for further management and evaluation of TIA. CT head was done which was concerning for suspected recent right frontoparietal watershed junction ischemic patient's telemetry during hospitalization remained stable. Carotid Dopplers were done which were concerning for an asymmetric low-grade left ICA stenosis noted 50 to 69%. Patient did not have any further symptoms during hospitalization. He worked well with physical therapy. His urine cultures were positive for staph epidermidis. Even though it is quite possible that his urine cultures were contaminant but the gait. 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 Blood cultures were taken and have remained negative to date. Patient is been discharged in hemodynamically stable condition on oral linezolid for 7 days with advised to follow-up with his primary care provider within 1 week to discuss the results of blood cultures. He has been explained in detail that if blood cultures come back positive to come back to the hospital for further work-up of infective endocarditis and long-term IV antibiotic treatment. For TIA he is to follow-up with Dr. Frye in [address] Donovan in 4 weeks for further evaluation and management of left ICA stenosis. Physical Exam Const: COMMON NORMALS: no acute distress, patient oriented x3, no limitations and alert HENMT: COMMON NORMALS: oropharynx normal OTHER: Perhaps minimal small ecchymosis spot at the right side tip of his tongue which he feels he had bit Eye: COMMON NORMALS: Equal, round and reactive pupils present PUPIL: Yes Equal, round and reactive pupils present Neck/C-Spine: COMMON NORMALS: no meningeal signs and no JVD Resp: COMMON NORMALS: normal respiratory effort, No retractions and clear to auscultation bilaterally AUSCULTATION: clear to auscultation bilaterally Cardio: COMMON NORMALS: no JVD, regular rate, regular rhythm, S1 normal heart sound present, S2 normal heart sound present and No murmurs present (Cardio) RATE: regular rate RHYTHM: regular rhythm HEART SOUNDS: S1 normal heart sound present, S2 normal heart sound present and Murmur heart sound present GI: COMMON NORMALS: Normal to inspection, nondistended, normoactive bowel sounds present, Soft to palpation and non-tender PALPATION: Yes Soft to palpation Extremity: COMMON NORMALS: normal to inspection, full ROM, no joint enlargement and no pedal edema Neuro: ZEN COMA SCALE: document GCS findings COMMON NORMALS: patient oriented x3, CN's II-XII intact bilaterally, moves all extremities, no focal motor deficits and no sensory deficits noted SENSORIUM/ORIENTATION: Yes alert MENINGEAL SIGNS: Yes no meningeal signs COORDINATION/BALANCE: xyogbn-sm-[id number] test normal and ducr-pp-ganj test normal SPEECH: speech normal SENSORY EXAM: Yes Normal double simultaneous stimulation for sensation MOTOR EXAM: 5/5 motor strength present throughout, Pronator motor function not present and Normal motor muscle tone present throughout COORDINATION: [id number]-fj-olpd test normal and wkrq-gt-[id number] test normal OTHER: No trouble tracking. Visual patricio full to confrontation. Skin: COMMON NORMALS: no rashes or lesions noted GENERAL SKIN EXAM: no rashes or lesions noted OTHER: Small ecchymosis at nailbed of middle finger of left hand which he says he had pinched a while ago Discharge Data Data Completed and Pending: Completed Studies During Hospitalization Category Date Time Status CT head wo con* 7 0450 Stat Cat Scan 02/18/21 20:57 Completed XR chest 1V teena ble [id number] Stat Exams 02/18/21 20:57 Completed CV carotid duplex BI* [id number] Routine Ultrasound 02/19/21 06:00 Completed CV echo complete* [id number] Routine Ultrasound 02/19/21 06:00 Completed Pending at discharge Category Date Time Status Basic Metabolic P erin AM LABS Lab 02/22/21 04:00 Ordered Blood Culture Sta t Lab 02/20/21 13:05 Results Complete Blood Co unt w/Auto AM LABS Lab 02/22/21 04:00 Ordered Vancomycin Trough Timed Lab 02/23/21 21:00 Ordered Labs from last 24 hours 02/21/21 02/21/21 02/21/21 11:45 06:30 06:12 WBC RBC Hgb Hct MCV MCH MCHC RDW Plt Count MPV Neut % (Auto) Lymph % (Auto) [place] % (Auto) Eos % (Auto) Baso % (Auto) Neut # (Auto) Lymph # (Auto) [place] # (Auto) Eos # (Auto) Baso # (Auto) Nucleated RBC % (a uto) Nucleated RBCs # Sodium Potassium Chloride Carbon Dioxide Anion Gap BUN Creatinine GFR Calculation Glucose POC Glucose 318 H 282 H 277 H Calculated Osmolal ity Calcium 02/21/21 02/21/21 02/20/21 04:59 04:59 20:37 WBC 7.7 RBC 4.60 Hgb 15.3 Hct 43.9 MCV 95.4 H MCH 33.3 MCHC 34.9 RDW 12.7 Plt Count 197 MPV 10.8 H Neut % (Auto) 63.7 Lymph % (Auto) 21.4 [place] % (Auto) 9.7 Eos % (Auto) 3.9 Baso % (Auto) 1.0 Neut # (Auto) 4.93 Lymph # (Auto) 1.7 [place] # (Auto) 0.8 Eos # (Auto) 0.3 Baso # (Auto) 0.1 Nucleated RBC % (a uto) 0 Nucleated RBCs # 0.0 Sodium 135 L Potassium 4.4 Chloride 100 Carbon Dioxide 25 Anion Gap 14.4 BUN 21 Creatinine 1.1 GFR Calculation Not Reportable Glucose 261 H POC Glucose 348 H Calculated Osmolal ity 292 Calcium 8.3 L 02/20/21 17:36 WBC RBC Hgb Hct MCV MCH MCHC RDW Plt Count MPV Neut % (Auto) Lymph % (Auto) [place] % (Auto) Eos % (Auto) Baso % (Auto) Neut # (Auto) Lymph # (Auto) [place] # (Auto) Eos # (Auto) Baso # (Auto) Nucleated RBC % (a uto) Nucleated RBCs # Sodium Potassium Chloride Carbon Dioxide Anion Gap BUN Creatinine GFR Calculation Glucose POC Glucose 316 H Calculated Osmolal ity Calcium Addt'l Data from Hospital Stay: Microbiology 02/20/21 13:05 Blood Blood Culture - Preliminary NEGATIVE TO DATE 02/20/21 13:00 Blood Blood Culture - Preliminary NEGATIVE TO DATE 02/18/21 23:00 Urine,Voided Urine Culture - Final Staphylococcus epidermidis Laboratory Results WBC 7.7 10^3/uL (4.0- 10.0) 02/21/21 04:59 RBC 4.60 10^6/uL (4.1 -5.3) 02/21/21 04:59 Hgb 15.3 g/dL (11.7-1 6.6) 02/21/21 04:59 Hct 43.9 % (42.0-52.0 ) 02/21/21 04:59 MCV 95.4 fL (80-94) H 02/21/21 04:59 MCH 33.3 pg (28.0-34. 0) 02/21/21 04:59 MCHC 34.9 g/dL (30.0-3 6.0) 02/21/21 04:59 RDW 12.7 % (12.1-15.1 ) 02/21/21 04:59 Plt Count 197 10^3/cmm (130 -400) 02/21/21 04:59 MPV 10.8 fL (7.4-10.4 ) H 02/21/21 04:59 Neut % (Auto) 63.7 % 02/21/21 04:59 Lymph % (Auto) 21.4 % 02/21/21 04:59 [place] % (Auto) 9.7 % 02/21/21 04:59 Eos % (Auto) 3.9 % 02/21/21 04:59 Baso % (Auto) 1.0 % 02/21/21 04:59 Neut # (Auto) 4.93 10^3/uL (1.8 -7.7) 02/21/21 04:59 Lymph # (Auto) 1.7 10^3/uL (0.8- 4.8) 02/21/21 04:59 [place] # (Auto) 0.8 10^3/uL (0.2- 0.9) 02/21/21 04:59 Eos # (Auto) 0.3 10^3/uL (0.0- 0.8) 02/21/21 04:59 Baso # (Auto) 0.1 10^3/uL (0.0- 0.1) 02/21/21 04:59 Nucleated RBC % (a uto) 0 % 02/21/21 04:59 Nucleated RBCs # 0.0 /100WBC 02/21/21 04:59 PT 13.40 SECONDS (12 .1-14.9) 02/18/21 23:26 INR 0.99 (0.8-1.2) 02/18/21 23:26 APTT 26.6 SECONDS (23. 9-36.7) 02/18/21 23:26 Sodium 135 mmol/L (136-1 45) L 02/21/21 04:59 Potassium 4.4 mmol/L (3.5-5 .1) 02/21/21 04:59 Chloride 100 mmol/L (98-10 7) 02/21/21 04:59 Carbon Dioxide 25 mmol/L (22-29) 02/21/21 04:59 Anion Gap 14.4 (5-19) 02/21/21 04:59 BUN 21 mg/dL (8-23) 02/21/21 04:59 Creatinine 1.1 mg/dL (0.7-1. 2) 02/21/21 04:59 GFR Calculation Not Reportable 02/21/21 04:59 Glucose 261 mg/dL (65-115 ) H 02/21/21 04:59 POC Glucose 318 mg/dL (70-110 ) H 02/21/21 11:45 Estimat Average Gl ucose 194 02/18/21 21:55 Hemoglobin A1c 8.4 % (4.0-6.0) H 02/18/21 21:55 Calculated Osmolal ity 292 mOsm/kg (285- 295) 02/21/21 04:59 Calcium 8.3 mg/dL (8.5-10 .5) L 02/21/21 04:59 Total Bilirubin 0.7 mg/dL (0.15-1 .2) 02/18/21 23:26 AST 14 U/L (0-40) 02/18/21 23: ALT 12 U/L (0-41) 02/18/21 23: Alkaline Phosphata se 78 IU/L (40-130) 02/18/21 23: Total Protein 6.3 g/dL (6.6-8.7 ) L 02/18/21 23: Albumin 4.0 g/dL (3.5-5.2 ) 02/18/21: Globulin 2.3 g/dL (1.3-4.6 ) 02/18/21 23: Triglycerides 548 mg/dL (0-150) H 02/18/21 23: Cholesterol 193 mg/dL (0-200) 02/18/21: LDL Cholesterol Di rect 97 mg/dL (0-100) 02/18/21 23: LDL Cholesterol, C alc Not Reportable 02/18/21: HDL Cholesterol 31 mg/dL (60-100) L 02/18/21: LDL/HDL Ratio Not Reportable 02/18/21: Cholesterol/HDL Ra alessia 6.23 mg/dL (1.0-5 .00) H 02/18/21 23: TSH 1.24 uIU/mL (0.27 -4.20) 02/18/21 23:26 Urine Color Yellow (Yellow) 02/18/21 23:00 Urine Appearance Sl cloudy (CLEAR ) A 02/18/21 23:00 Urine pH 6 (5-7) 02/18/21 23:00 Ur Specific Gravit y 1.010 (1.005-1.0 30) 02/18/21 23:00 Urine Protein Neg (Negative) 02/18/21 23:00 Urine Glucose (UA) 4+ (Normal) H 02/18/21 23:00 Urine Ketones Negative (Negati ve) 02/18/21 23:00 Urine Blood Neg (Negative) 02/18/21 23:00 Urine Nitrate Positive (Negati ve) H 02/18/21 23:00 Urine Bilirubin Neg (Negative) 02/18/21 23:00 Urine Urobilinogen Norm mg/dL (Negat angie) 02/18/21 23:00 Ur Leukocyte Kristie ase Trace (Negative) H 02/18/21 23:00 Urine RBC 0-4 /hpf (0-2) H 02/18/21 23:00 Urine WBC 25-40 /hpf (0-5) H 02/18/21 23:00 Ur Squamous Epith Cells 0-4 /hpf (0-5) H 02/18/21 23:00 Amorphous Sediment 2+ /hpf 02/18/21 23:00 Urine Bacteria 2+ /hpf (NONE) H 02/18/21 23:00 Urine Opiates Scre en Negative ng/mL (N egative) 02/18/21 23:00 Ur Barbiturates Sc reen Negative ng/mL (N egative) 02/18/21 23:00 Ur Phencyclidine S crn Negative ng/mL (N egative) 02/18/21 23:00 Ur Amphetamines Sc reen Negative ng/mL (N egative) 02/18/21 23:00 U Benzodiazepines Scrn Negative ng/mL (N egative) 02/18/21 23:00 Urine Cocaine Scre en Negative ng/mL (N egative) 02/18/21 23:00 U Marijuana (THC) Screen Negative ng/mL (N egative) 02/18/21 23:00 Impressions Chest X-Ray 02/18/21 20:57 IMPRESSION: Nonacute. Head CT 02/18/21 20:57 IMPRESSION: 1. Findings of a suspected recent right frontal parietal watershed junction ischemic event/infarction. 2. Would suggest follow-up MRI of the brain for confirmation. 3. No visible intracranial hemorrhagic event. Radiation Dose CTDIVOL = (mGy): DLP = 882.96 (mGy-cm) ADDENDUM: 02/18/212200 THIS REPORT CONTAINS FINDINGS THAT MAY BE CRITICAL TO PATIENT CARE. The findings were verbally communicated via telephone conference with Dr. Escobar at 9:56 PM CDT on 02/18/2021. The findings were acknowledged and understood. Radiation Dose CTDIVOL = (mGy): DLP = 882.96 (mGy-cm) Carotid Doppler Study 02/19/21 06:00 Impression: 1. Asymmetric plaque formation within the carotid arteries, with low-grade left ICA stenosis, on the order of 50-69%. 2. Normal antegradew flow within the vertebral arteries. Echo: CONCLUSIONS Normal left ventricular size and systolic function, EF 70 %. No regional wall motion abnormalities. Mild left ventricular hypertrophy. Grade I/IV diastolic dysfunction (abnormal relaxation filling pattern), normal to mildly elevated filling pressures. Moderate mitral annular calcification. Thickened aortic valve. Trace tricuspid valve regurgitation. There are no intracardiac masses. There are no prior echocardiogram studies to compare. Dr Tammy Callahan MD [facility] (Electronically Signed) Final Date: 19 Feb 2021 10:02 S Vitals: Last Vital Signs Temp 97.7 F 02/21/21 11:48 Pulse 76 02/21/21 11:48 Resp 15 02/21/21 11:48 BP 136/77 02/21/21 11:48 Pulse Ox 96 02/21/21 11:48 Discharge Plan Discharge Patient Disposition: Home Condition: Stable Prescriptions: New aspirin 325 mg Tablet 325 mg PO DAILY Qty: 30 RF: 0 rosuvastatin 20 mg tablet 20 mg PO DAILY Qty: 30 RF: 0 linezolid 600 mg tablet 600 mg PO BID 10 Days Qty: 20 RF: 0 Continued losartan 50 mg tablet 50 mg PO DAILY Qty: 30 RF: 3 pantoprazole 40 mg tablet,delayed release (DR/EC) 40 mg PO DAILY RF: 0 allopurinol 300 mg tablet 300 mg PO BID RF: 0 lfyz-nriayu-jkserhky-D3-C-Mn 500-400-667 mg-mg-unit capsule 1 cap PO DAILY RF: 0 krill oil 1 cap PO DAILY RF: 0 multivitamin Tablet 1 tab PO DAILY RF: 0 PreserVision AREDS-2 250-90-40-1 mg capsule 1 tab PO BID RF: 0 cholecalciferol (vitamin D3) 50 mcg (2,000 unit) capsule 50 mcg PO DAILY RF: 0 finasteride 5 mg tablet 5 mg PO DAILY Qty: 30 RF: 0 metformin 1,000 mg tablet 1,000 mg PO BID Qty: 60 RF: 0 insulin lispro [Humalog KwikPen Insulin] 100 unit/mL insulin pen 10 unit SUBCUT TID Qty: 3 RF: 0 (DME) Blood Glucose Test Strip See Rx Instructions .Route Qty: 100 RF: 6 Flomax 0.4 mg Capsule 0.4 mg PO BID RF: 0 Changed Basaglar KwikPen U-100 Insulin 100 unit/mL (3 mL) insulin pen 55 unit SUBCUT DAILY Qty: 15 RF: 4 Discontinued rosuvastatin [Crestor] 5 mg tablet 5 mg PO DAILY 90 Days Qty: 90 RF: 0 Discharge Orders: Discharge Order (Routine); Ordered 02/21/21 Ordered By: Brendon Garcias Referrals: Isa Frye MD [Physician] - 2 weeks Winter Becerra MD [Physician] - 4-7 days Ronald Donovan MD [Physician] - 1 month (Left ICA stenosis 50-69%, recent right frontal parietal watershed junction ischemic event/infarction.) Discharge Diet: Cardiac and Diabetic Discharge Activity: Resume usual activity Patient Instructions: Self Care Measures After a Stroke (DC), Opioid Safety Activity Restrictions/Additional Instructions: Please follow-up with your primary care provider within next 1 week. Please discuss the results of blood cultures with your primary care provider. For now continue taking linezolid for next 7 days. If blood cultures come back positive please come back to the hospital for further work-up. Please follow-up with Dr. Frye in your office within next 1 week. Your dose of insulin has been changed. Lantus/Basaglar has been increased to 55 units at bedtime. Target blood sugars at fasting level less than 120 while premeals less than 140. Discharge Attestations Time Spent in Discharge Care*: greater than 30 min Quality Metrics Clinical Quality Measures During this hospital stay, did patient experience: Stroke Contraindication to Antithrombotic: Antithrombotic prescribed Contraindication to Anticoagulation: Overlap treatment not indicated Contraindication to Statin: Statin prescribed Coding Level of Care Code Acute Chg FW DC note Diagnoses UTI (urinary tract infection) N39.0 Cerebrovascular accident I63.9 CVA mechanism: unspecified Hypertension I10 Hypertension type: essential hypertension DM (diabetes mellitus) E11.9; Z79.4 Diabetes mellitus type: type 2 Diabetes mellitus correction insulin use: with buttermaker helper use Diabetes mellitus complication status: without complication
--- NOTE | 2021-02-21 13:21 | CT_ITS ---
WS: [id number] CTA HEAD AND NECK TECHNIQUE: Contrast enhanced CTA of the head and neck with coronal and sagittal reformatted images an d maximum intensity projection (MIP) images. NASCET criteria utilized. CLINICAL INFORMATION: stroke, Left ICA stenosis COMPARISON: None. DLP: 2492.[address] scans at [facility] use at least one of these dose optimization techniques: automat ed exposure control; mA and/or kV adjustment per patient size (includes targeted exams where dose is matched to clinical indication); or iterative reconstruction. FINDINGS: Low-attenuation change in the right frontoparietal junction is unchanged. Moderate small ve ssel changes. Moderate parenchymal volume loss. RIGHT: Right common carotid artery is patent. Mild atheromatous plaque right carotid bulb. No signifi cant right ICA stenosis. Right ICA is patent to the skull base. LEFT: Left common carotid artery is patent. Calcified atheromatous plaque left carotid bulb extending into the ICA. Tortuous left proximal ICA origin without significant stenosis. Left ICA is patent to the skull base. Mild spondylitic changes cervical spine. Lung apices are well aerated. INTRACRANIAL CTA:Both vertebral arteries are patent. Basilar artery is patent. Normal vascularity to the [employer] territory bilaterally. Moderate cavernous carotid calcification. Normal vascularity to the [place] and MCA territories bilateral ly. No flow-limiting intracranial stenosis. CT/CT angio headneck* [id number] IMPRESSION: 1. No significant right ICA stenosis. 2. Tortuous left proximal ICA with mild atheromatous plaque and less than 50% stenosis. 3. No flow-limiting intracranial stenosis. 4. Stable low-attenuation changes in the right frontoparietal white matter.
--- NOTE | 2021-02-21 13:50 | PC.NURSE ---
Addendum entered by Laura Badillo RN 02/21/21 14:00: discussed patients follow up appointment with Dr. Becerra. Original Note: updated pt shruthi about discharge orders.
[2021-02-21 15:25] VITALS: BP 136/77; PULSE 76; RESP 15; TEMP 36.5; O2SAT 96
== END 2021-02-21 15:28 | disposition home or self-care (01) | DRG 69 ==
LOC: ER 21:27 → MEDSURG 22:42
PROVIDERS: Internal Medicine; Admitting Provider Internal Medicine; Emergency Provider Family Medicine; Visit Provider Student in an Organized Health Care Education/Training Program
DX: G45.9 Transient cerebral ischemic attack, unspecified (principal); N39.0 Urinary tract infection, site not specified; E11.9 Type 2 diabetes mellitus without complications; I10 Essential (primary) hypertension; E78.5 Hyperlipidemia, unspecified; Z87.891 Personal history of nicotine dependence; Z95.3 Presence of xenogenic heart valve; G89.29 Other chronic pain; M54.9 Dorsalgia, unspecified; Z96.659 Presence of unspecified artificial knee joint; Z95.0 Presence of cardiac pacemaker; B95.8 Unspecified staphylococcus as the cause of diseases classified elsewhere; I65.22 Occlusion and stenosis of left carotid artery; Z79.4 Long term (current) use of insulin
CPT/HCPCS: 36415; 36416; 70450; 70496; 70498; 71045; 80048; 80053; 80061; 80306; 81001; 82962; 83036; 83721; 84443; 85025; 85610; 85730; 87040; 87077; 87086; 87186; 92523; 92610; 93306; 93880; 96372; 97161; 97165; 97530; J0696; J1815 ×2; J3370; Q9967

== ENCOUNTER → 2021-10-17 16:40 | Outpatient (BNVA) | payer MEDICARE, MEDICAID, SELFPAY | PROVIDERS: Visit Provider Family Medicine | DX: E11.65 Type 2 diabetes mellitus with hyperglycemia (principal); Z79.4 Long term (current) use of insulin; I10 Essential (primary) hypertension; E78.5 Hyperlipidemia, unspecified; K21.9 Gastro-esophageal reflux disease without esophagitis; M10.9 Gout, unspecified | CPT/HCPCS: 80053; 80061; 83036; 84550; 85025 ==

== ENCOUNTER → 2022-02-14 12:54 | Outpatient (BNVA) | payer MEDICARE, MEDICAID, SELFPAY | PROVIDERS: PCP Family Medicine; Visit Provider Family Medicine | DX: I10 Essential (primary) hypertension (principal); E78.5 Hyperlipidemia, unspecified; Z79.4 Long term (current) use of insulin; K21.9 Gastro-esophageal reflux disease without esophagitis; M10.9 Gout, unspecified; E11.9 Type 2 diabetes mellitus without complications | CPT/HCPCS: 80053; 80061; 83036; 85025 ==

== ENCOUNTER → 2022-06-08 14:42 | Outpatient (BNVA) | payer MEDICARE, MEDICAID, SELFPAY | PROVIDERS: PCP Family Medicine; Visit Provider Family Medicine | DX: N39.0 Urinary tract infection, site not specified (principal); M10.9 Gout, unspecified; E78.5 Hyperlipidemia, unspecified; I10 Essential (primary) hypertension; E11.65 Type 2 diabetes mellitus with hyperglycemia; Z79.4 Long term (current) use of insulin; B36.9 Superficial mycosis, unspecified; K21.9 Gastro-esophageal reflux disease without esophagitis | CPT/HCPCS: 80053; 80061; 81003; 83036; 84443; 84550; 85025; 87086 ==

== ENCOUNTER → 2022-07-13 15:54 | Outpatient (BNVA) | payer MEDICARE, MEDICAID, SELFPAY | PROVIDERS: PCP Family Medicine; Visit Provider Family Medicine | DX: N39.0 Urinary tract infection, site not specified (principal) | CPT/HCPCS: 81000 ==

== ENCOUNTER → 2022-12-15 11:05 | Outpatient (BNVA) | payer MEDICARE, MEDICAID, SELFPAY | PROVIDERS: PCP Family Medicine; Visit Provider Family Medicine | DX: R32 Unspecified urinary incontinence (principal); E11.65 Type 2 diabetes mellitus with hyperglycemia; E78.5 Hyperlipidemia, unspecified; I10 Essential (primary) hypertension; Z12.5 Encounter for screening for malignant neoplasm of prostate; Z79.4 Long term (current) use of insulin | CPT/HCPCS: 80053; 80061; 81000; 83036; 84443; 85025; G0103 ==

== ENCOUNTER → 2023-04-25 11:00 | Outpatient (BNVA) | payer MEDICARE, MEDICAID, SELFPAY | PROVIDERS: PCP Family Medicine; Visit Provider Family Medicine | DX: M10.9 Gout, unspecified (principal); K21.9 Gastro-esophageal reflux disease without esophagitis; E78.5 Hyperlipidemia, unspecified; I10 Essential (primary) hypertension; E11.9 Type 2 diabetes mellitus without complications | CPT/HCPCS: 80053; 80061; 83036; 84443; 84550; 85025 ==